=== PATIENT | male | born 1965 | race Caucasian/White ===

== ENCOUNTER 2018-07-28 08:14 | Emergency (ER) | payer MEDICAID ==
[~2018-07-28] VITALS: Ht 177.8 cm; Wt 134.3 kg
[2018-07-28 08:49] LABS: BASOPHILS # (AUTO) 0.1 /CMM (0.0-0.2); EOSINOPHILS % (AUTO) 1.8 % (0.0-6.0); HEMATOCRIT 40 % (39-51); HEMOGLOBIN 13.8 g/dL (13.5-17.5); LYMPHOCYTES # (AUTO) 3.7 /CMM (0.8-4.8); LYMPHOCYTES % (AUTO) 42.8 % (20.0-44.0); MEAN CORPUSCULAR HGB CONC 34 g/dl (31.0-36.0); MEAN CORPUSCULAR VOLUME 94 fL (80-96); MONOCYTES # (AUTO) 0.8 /CMM (0.1-1.30); MONOCYTES % (AUTO) 9.2 % (2.0-12.0); NEUTROPHILS # (AUTO) 3.9 /CMM (1.8-8.9); NEUTROPHILS % (AUTO) 45.2 % (43.0-81.0); PLATELET COUNT (AUTO) 304 /CMM (150-450); RED BLOOD CELL COUNT(AUTO) 4.29 MIL/uL (4.5-6.0); WHITE BLOOD COUNT (AUTO) 8.7 K/uL (4.3-11.0)
[2018-07-28 08:51] LABS: APPEARANCE,URINE Clear (CLEAR); BILIRUBIN,URINE Negative (NEGATIVE); BLOOD, URINE Trace-intact Ery/uL (NEGATIVE); COLOR,URINE Yellow (YELLOW); KETONES,URINE Negative (NEGATIVE); LEUKOCYTE ESTERASE ,URINE Negative (NEGATIVE); NITRITE, URINE Negative (NEGATIVE); PH,URINE 5.5 (5.0-8.0); PROTEIN,URINE Negative (NEGATIVE); UGLUCOSE Negative (NEGATIVE); UROBILINOGEN,URINE 0.2 EU/dL (0.2)
--- NOTE | 2018-07-28 08:59 | NUR ---
0820: Patient A/Ox3, verbalized no SI at this time. Verbalized that sometimes he thinks he wants "cut his wrist", but no ideation at this time. 0850: Eating breakfast, VSS. Monitored. Addendum: 07/28/18 at 1431 by LILLIANA Awaitng [facility] Robin boston. PAtient aware. Resting in bed at this time.
[2018-07-28 09:01] LABS: CALCIUM, SERUM 9.1 mg/dL (8.5-10.1); CARBON DIOXIDE 25 mmol/L (21-32); CHLORIDE 103 mmol/L (98-107); GLUCOSE 100 mg/dL (74-106); POTASSIUM 3.9 mmol/L (3.5-5.1); SODIUM SERUM 141 mmol/L (136-145); UREA NITROGEN, BLOOD 17 mg/dL (7-18)
[2018-07-28 09:06] LABS: ALANINE AMINOTRANSFERASE 28 U/L (12-78); ALBUMIN 3.4 g/dL (3.4-5.0); ALCOHOL, BLOOD 63 mg/dL (0-0); ALKALINE PHOSPHATASE 91 U/L (46-116); ASPARTATE AMINOTRANSFERASE 18 U/L (15-37); BILIRUBIN,TOTAL 0.2 mg/dL (0.2-1.0); SALICYLATE 3.6 mg/dL (2.8-20.0); TOTAL PROTEIN, SERUM 7.9 g/dL (6.4-8.2)
[2018-07-28 09:13] LABS: BACTERIA,URINE Rare /HPF (None Seen); SQUAMOUS EPITHELIAL CELL,UR Few /HPF (None Seen); WBC,URINE NONE SEEN /HPF (0-3)
[2018-07-28 09:14] LABS: ACETAMINOPHEN < 2 ug/ml (10-30)
--- NOTE | 2018-07-28 15:38 | NUR ---
1530: Still awaitng placement to [facility]. Patient resting in bed.
--- NOTE | 2018-07-28 15:59 | NUR ---
IFEANYI ETA 2658 TRIP #[id number]
--- NOTE | 2018-07-28 16:59 | NUR ---
Report givento [facility] for KARLIE [phone] Tavera.PAtient aware for the transfer, ETA of curing pickling packer [phone].
--- NOTE | 2018-07-28 17:29 | NUR ---
Ambulanz with 2 personnels here for PI/U. VSS, patient is stable. No PIV placed. Able to ambulate. Still voluntarily wanting to go to other facility.
[2018-07-28 17:33] VITALS: BP 152/85
== END 2018-07-28 17:33 ==
LOC: ER 08:14
DX: R45.851 Suicidal ideations (principal); F32.9 Major depressive disorder, single episode, unspecified; F99 Mental disorder, not otherwise specified; I10 Essential (primary) hypertension; E11.9 Type 2 diabetes mellitus without complications; F60.0 Paranoid personality disorder; F25.9 Schizoaffective disorder, unspecified; Z59.0 Homelessness
CPT/HCPCS: 36415; 80048; 80076; 80305; 80307; 80329; 81001; 85025; 99285; G0480; 81000-TC

== ENCOUNTER 2018-08-17 01:41 | Emergency (ER) | payer OTHER ==
[~2018-08-17] VITALS: Ht 182.9 cm; Wt 136.1 kg
--- NOTE | 2018-08-17 02:07 | NUR ---
CALLED FOR PT 3 TIMES IN WAITING ROOM. NO RESPONSE.
--- NOTE | 2018-08-17 03:18 | NUR ---
CALLED FOR PT 3 TIMES IN WAITING ROOM. NO RESPONSE.
--- NOTE | 2018-08-17 05:08 | NUR ---
PHLEB AT BEDSIDE FOR LAB DRAW
[2018-08-17 05:18] LABS: BASOPHILS # (AUTO) 0.1 /CMM (0.0-0.2); BASOPHILS % (AUTO) 0.8 % (0.0-2.0); EOSINOPHILS % (AUTO) 1.3 % (0.0-6.0); HEMATOCRIT 41 % (39-51); HEMOGLOBIN 13.7 g/dL (13.5-17.5); LYMPHOCYTES # (AUTO) 2.7 /CMM (0.8-4.8); LYMPHOCYTES % (AUTO) 30.1 % (20.0-44.0); MEAN CORPUSCULAR HGB CONC 34 g/dl (31.0-36.0); MEAN CORPUSCULAR VOLUME 95 fL (80-96); MONOCYTES % (AUTO) 10.8 % (2.0-12.0); NEUTROPHILS # (AUTO) 5.1 /CMM (1.8-8.9); PLATELET COUNT (AUTO) 255 /CMM (150-450); RED BLOOD CELL COUNT(AUTO) 4.27 MIL/uL (4.5-6.0)
[2018-08-17 05:27] LABS: CALCIUM, SERUM 9.3 mg/dL (8.5-10.1); CARBON DIOXIDE 27 mmol/L (21-32); CHLORIDE 101 mmol/L (98-107); GLUCOSE 108 mg/dL (74-106); POTASSIUM 3.8 mmol/L (3.5-5.1); SODIUM SERUM 138 mmol/L (136-145); UREA NITROGEN, BLOOD 22 mg/dL (7-18)
[2018-08-17 05:32] LABS: ALANINE AMINOTRANSFERASE 25 U/L (12-78); ALBUMIN 3.4 g/dL (3.4-5.0); ALKALINE PHOSPHATASE 95 U/L (46-116); ASPARTATE AMINOTRANSFERASE 18 U/L (15-37); BILIRUBIN,DIRECT 0.1 mg/dL (0.0-0.2); BILIRUBIN,TOTAL 0.7 mg/dL (0.2-1.0); SALICYLATE 3.1 mg/dL (2.8-20.0); TOTAL PROTEIN, SERUM 7.7 g/dL (6.4-8.2)
[2018-08-17 05:40] LABS: ACETAMINOPHEN 0 ug/ml (10-30); ALCOHOL, BLOOD < 3 mg/dL (0-0)
--- NOTE | 2018-08-17 08:00 | NUR ---
URINAL GIVEN BUT UNABLE TO PROVIDE URINE SPECIMEN, PT REFUSED STRAIGHT CATHETER INSERTION.
--- NOTE | 2018-08-17 09:06 | NUR ---
PT IS ASLEEP ON BED, EASILY AROUSABLE, V/S STABLE, STILL UNABLE TO PROVIDE URINE SPECIMEN, WILL CONTINUE TO MONITOR.
--- NOTE | 2018-08-17 10:17 | NUR ---
EMANUEL LOOMIS CALLED FOR EVAL
[2018-08-17 10:46] LABS: APPEARANCE,URINE Clear (CLEAR); BILIRUBIN,URINE SMALL (NEGATIVE); BLOOD, URINE Negative Ery/uL (NEGATIVE); COLOR,URINE Yellow (YELLOW); KETONES,URINE Trace (NEGATIVE); LEUKOCYTE ESTERASE ,URINE Negative (NEGATIVE); NITRITE, URINE Negative (NEGATIVE); PROTEIN,URINE 30 mg/dl (NEGATIVE); UGLUCOSE Negative (NEGATIVE); UROBILINOGEN,URINE 0.2 EU/dL (0.2)
[2018-08-17 11:02] LABS: BACTERIA,URINE Rare /HPF (None Seen); MUCUS,URINE Few /LPF (None Seen); SQUAMOUS EPITHELIAL CELL,UR Few /HPF (None Seen)
--- NOTE | 2018-08-17 11:42 | NUR ---
EMANUEL LOOMIS AT BEDSIDE
--- NOTE | 2018-08-17 15:00 | NUR ---
IFEANYI WEBB 7528 TRIP#[id number]
[2018-08-17 16:10] VITALS: BP 126/68
--- NOTE | 2018-08-17 16:18 | NUR ---
called socmare redding for report, report given to gordon for kassy
--- NOTE | 2018-08-17 16:23 | NUR ---
PT TRANSPORTED TO [facility] VIA PRIVATE AMBULANCE, VSS, PT IS STABLE FOR TRANSFER TO HIGHER LEVEL OF CARE TO [facility], PT IS ON A VOLUNTARY BASIS, PT LEFT VIA GURNEY, REPORT GIVEN TO AMBULANCE STAFF, MOVE PACKET WITH EMT.
== END 2018-08-17 16:26 | disposition home or self-care (01) ==
LOC: ER 01:45
DX: F32.9 Major depressive disorder, single episode, unspecified (principal); F29 Unspecified psychosis not due to a substance or known physiological condition; I10 Essential (primary) hypertension; E11.9 Type 2 diabetes mellitus without complications; F25.9 Schizoaffective disorder, unspecified; F60.0 Paranoid personality disorder; F10.10 Alcohol abuse, uncomplicated; F12.10 Cannabis abuse, uncomplicated; F13.10 Sedative, hypnotic or anxiolytic abuse, uncomplicated; Y90.0 Blood alcohol level of less than 20 mg/100 ml; Z59.0 Homelessness
CPT/HCPCS: 36415; 80048; 80076; 80305; 80307; 80329; 81001; 85025; 99284; G0480; 81000-TC

== ENCOUNTER 2018-08-29 05:21 | Emergency (ER) | payer OTHER ==
[~2018-08-29] VITALS: Ht 177.8 cm; Wt 133.8 kg
--- NOTE | 2018-08-29 05:21 | NUR ---
PT BIB SELF C/O SI "I WANT TO CUT MY WRIST" PT IS AAOX4, NOT IN RESPIRATORY DISTRESS, KEPT RESTED AND COMFORTABLE, WILL CONTINUE TO MONITOR.
--- NOTE | 2018-08-29 05:45 | NUR ---
URINE SPECIMEN COLLECTED AND SENT TO LAB.
[2018-08-29 06:36] LABS: BASOPHILS # (AUTO) 0.1 /CMM (0.0-0.2); HEMATOCRIT 41 % (39-51); HEMOGLOBIN 13.9 g/dL (13.5-17.5); LYMPHOCYTES # (AUTO) 2.5 /CMM (0.8-4.8); LYMPHOCYTES % (AUTO) 30.8 % (20.0-44.0); MEAN CORPUSCULAR HGB CONC 34 g/dl (31.0-36.0); MEAN CORPUSCULAR VOLUME 94 fL (80-96); MONOCYTES # (AUTO) 0.8 /CMM (0.1-1.30); MONOCYTES % (AUTO) 9.9 % (2.0-12.0); NEUTROPHILS # (AUTO) 4.7 /CMM (1.8-8.9); NEUTROPHILS % (AUTO) 57.3 % (43.0-81.0); PLATELET COUNT (AUTO) 272 /CMM (150-450); RED BLOOD CELL COUNT(AUTO) 4.34 MIL/uL (4.5-6.0); WHITE BLOOD COUNT (AUTO) 8.1 K/uL (4.3-11.0)
[2018-08-29 06:43] LABS: CALCIUM, SERUM 9.2 mg/dL (8.5-10.1); CARBON DIOXIDE 28 mmol/L (21-32); CHLORIDE 100 mmol/L (98-107); GLUCOSE 120 mg/dL (74-106); POTASSIUM 3.6 mmol/L (3.5-5.1); SODIUM SERUM 137 mmol/L (136-145); UREA NITROGEN, BLOOD 16 mg/dL (7-18)
[2018-08-29 06:43] LABS: APPEARANCE,URINE CLEAR (CLEAR); BILIRUBIN,URINE NEGATIVE (NEGATIVE); BLOOD, URINE NEGATIVE Ery/uL (NEGATIVE); COLOR,URINE YELLOW (YELLOW); KETONES,URINE TRACE (NEGATIVE); LEUKOCYTE ESTERASE ,URINE NEGATIVE (NEGATIVE); NITRITE, URINE POSITIVE (NEGATIVE); PROTEIN,URINE NEGATIVE (NEGATIVE); UGLUCOSE NEGATIVE (NEGATIVE); UROBILINOGEN,URINE 0.2 EU/dL (0.2)
[2018-08-29 06:49] LABS: ALANINE AMINOTRANSFERASE 26 U/L (12-78); ALBUMIN 3.3 g/dL (3.4-5.0); ALCOHOL, BLOOD < 3 mg/dL (0-0); ALKALINE PHOSPHATASE 90 U/L (46-116); ASPARTATE AMINOTRANSFERASE 15 U/L (15-37); BILIRUBIN,DIRECT 0.1 mg/dL (0.0-0.2); BILIRUBIN,TOTAL 0.2 mg/dL (0.2-1.0); SALICYLATE 3.5 mg/dL (2.8-20.0); TOTAL PROTEIN, SERUM 7.6 g/dL (6.4-8.2)
[2018-08-29 06:53] LABS: ACETAMINOPHEN 0 ug/ml (10-30)
--- NOTE | 2018-08-29 07:25 | NUR ---
PATIENT AND BELONGINGS WANDED BY SECURITY, MEDICATIONS (13 SMALL BOTTLES, 3 BIG BOTTLES AND 1 ALBUTEROL INHALER), 2 LIGHTERS, SMOKING TOOL, EYEGLASSES, PEDIATRIC NEUROLOGIST AND NOTEBOOK PLACED AT NURSING STATION. CAN BRUSH CLEARING LABORER WITH KNIFE KEPT BY SECURITY.
--- NOTE | 2018-08-29 08:10 | NUR ---
RUFINO LOOMIS CALLED FOR EVAL
--- NOTE | 2018-08-29 08:17 | NUR ---
CALL BACK FROM RUFINO
[2018-08-29 08:34] LABS: BACTERIA,URINE Rare /HPF (None Seen); RBC,URINE NONE SEEN /HPF (0-2); SQUAMOUS EPITHELIAL CELL,UR Few /HPF (None Seen); WBC,URINE NONE SEEN /HPF (0-3)
[2018-08-29 08:59] VITALS: BP 129/83
--- NOTE | 2018-08-29 09:09 | NUR ---
BREAKFAST TRAY PROVIDED, PT TOLERATING PO WELL.
--- NOTE | 2018-08-29 09:48 | NUR ---
PANTRY GOODS WORKER RUFINO GALLARDO AT BEDSIDE
--- NOTE | 2018-08-29 11:15 | NUR ---
pt accepted at [facility] nurse: osvaldo report: [phone] dr. Gupta
--- NOTE | 2018-08-29 11:32 | NUR ---
REPORT GIVEN TO MARBIN GUZMAN OF [facility].
--- NOTE | 2018-08-29 12:04 | NUR ---
CALLED FOR TRANSPORT, ETA 1 HOUR (APPROX 1300), TRIP # [id number]
--- NOTE | 2018-08-29 13:25 | NUR ---
Patient discharged to [facility] UN[facility] in stable condition. Pt signed homeless waiver form. Patient given written and verbal discharge instructions. Patient verbalizes understanding of instructions. Patient is ambulatory with steady gait. Patient given list of available shelters in surrounding area. Name ban removed. All belongings returned. Wearing appropriate clothes. Pt will be brought to [facility].
== END 2018-08-29 13:29 ==
LOC: ER 05:24
DX: R45.851 Suicidal ideations (principal); I10 Essential (primary) hypertension; E11.9 Type 2 diabetes mellitus without complications; M19.90 Unspecified osteoarthritis, unspecified site; F17.200 Nicotine dependence, unspecified, uncomplicated; Z59.0 Homelessness
CPT/HCPCS: 36415; 80048; 80076; 80305; 80307; 80329; 81001; 85025; 87086; 99285; G0480; 81000-TC

== ENCOUNTER 2018-10-23 05:58 | Emergency (ER) | payer OTHER ==
[~2018-10-23] VITALS: Ht 177.8 cm; Wt 130.2 kg
--- NOTE | 2018-10-23 06:24 | NUR ---
BIBSELF TO ER. PT IS ALERT AND ORIENTED X4. PT SMELLS OF ALCOHOL. NO RESPIRATORY DISTRESS. AMBULATORY. COOPERATIVE AND COMPLIANCE. CAME TO ER FOR THOUGHT OF HURTING HIMSELF WITHOUT ANY SPECIFIC PLAN. DENIES HI. PT REPORTS HAVE BEEN FEELING DEPRESSED. ALCOHOL USED TWO HOURS AGO, UNKNOWN AMOUNT. PT'E BELONGINGS AND CLOTHES STRIPPED OFF FROM PT, LABELED AND KEPT IN LOCKER IN UTILITY ROOM. PT PLACED IN GOWN. 1:1 SITTER AT BEDSIDE. AWATING MD FOR EVAL. BLOOD DRAWN AND URINE COLLECTED.
[2018-10-23] MEDS ORDERED: OLANZAPINE 5 MG TABLET PO ONE (06:30)
[2018-10-23] MEDS ORDERED: OLANZAPINE 5 MG TABLET ONE (06:31)
[2018-10-23 06:38] LABS: BASOPHILS # (AUTO) 0.1 /CMM (0.0-0.2); BASOPHILS % (AUTO) 0.9 % (0.0-2.0); HEMATOCRIT 43 % (39-51); HEMOGLOBIN 14.6 g/dL (13.5-17.5); LYMPHOCYTES # (AUTO) 2.4 /CMM (0.8-4.8); LYMPHOCYTES % (AUTO) 29.6 % (20.0-44.0); MEAN CORPUSCULAR HGB CONC 34 g/dl (31.0-36.0); MEAN CORPUSCULAR VOLUME 92 fL (80-96); MONOCYTES # (AUTO) 0.7 /CMM (0.1-1.30); MONOCYTES % (AUTO) 8.4 % (2.0-12.0); NEUTROPHILS # (AUTO) 4.8 /CMM (1.8-8.9); NEUTROPHILS % (AUTO) 60.1 % (43.0-81.0); PLATELET COUNT (AUTO) 273 /CMM (150-450); RED BLOOD CELL COUNT(AUTO) 4.68 MIL/uL (4.5-6.0); WHITE BLOOD COUNT (AUTO) 8.1 K/uL (4.3-11.0)
[2018-10-23 06:45] LABS: APPEARANCE,URINE CLEAR (CLEAR); BILIRUBIN,URINE NEGATIVE (NEGATIVE); BLOOD, URINE NEGATIVE Ery/uL (NEGATIVE); COLOR,URINE YELLOW (YELLOW); KETONES,URINE 1+ (NEGATIVE); LEUKOCYTE ESTERASE ,URINE NEGATIVE (NEGATIVE); NITRITE, URINE NEGATIVE (NEGATIVE); PROTEIN,URINE NEGATIVE (NEGATIVE); UGLUCOSE NEGATIVE (NEGATIVE); UROBILINOGEN,URINE 0.2 EU/dL (0.2)
[2018-10-23 06:46] LABS: CALCIUM, SERUM 9.1 mg/dL (8.5-10.1); CREATININE 0.9 mg/dL (0.6-1.3); POTASSIUM 4.2 mmol/L (3.5-5.1)
[2018-10-23 06:52] LABS: ALBUMIN 3.6 g/dL (3.4-5.0); BILIRUBIN,DIRECT 0.1 mg/dL (0.0-0.2); BILIRUBIN,TOTAL 0.2 mg/dL (0.2-1.0); SALICYLATE 2.9 mg/dL (2.8-20.0); TOTAL PROTEIN, SERUM 8.4 g/dL (6.4-8.2)
[2018-10-23 07:06] LABS: BACTERIA,URINE None seen /HPF (None Seen); RBC,URINE NONE SEEN /HPF (0-2); SQUAMOUS EPITHELIAL CELL,UR Rare /HPF (None Seen); WBC,URINE 0-2 /HPF (0-3)
--- NOTE | 2018-10-23 07:20 | NUR ---
REPORT RECEIVED FROM EDYTA GUZMAN FOR KARLIE
--- NOTE | 2018-10-23 08:30 | NUR ---
Social service consult requested by Dr. Hernandez for suicidal ideations. Pt. is a 53 year old male who came to [facility] ED for depression and suicidal ideations. SW met with pt. bedside. Pt. is alert and oriented x 4. Pt appears depressed with a flat affect. Pt. states he has been homeless on and off for the past 9 months. Prior to being homeless, pt. was residing in a board and care facility. Pt. has a psychiatric history of Depression and Bipolar Disorder. Pt. has been hospitalized in the past at [facility] and [facility]. Pt. states he is feeling depressed, paranoid and suicidal. He has a suicidal plan to run into traffic. Pt.receives approximately $1000/ month of SSDI. Pt. drinks alcohol and smokes marijuana occasionally. Pt's drink of choice is beer. Pt. smokes 1/2 pack of cigarettes per day. Pt. is requesting voluntary admit to [facility]. SW asked THOMAS Felix to fax clinicals to [facility]. SW of follow up with [facility] regarding acceptance.
--- NOTE | 2018-10-23 08:48 | NUR ---
CHER TREVIZO AT BEDSIDE
--- NOTE | 2018-10-23 10:04 | NUR ---
CHER contacted Desiree in intake at [facility] regarding clinical packet that was faxed to her. Desiree informed SW that she did receive it, however it is under review by the nursing elevator constructor supervisor. Desiree informed SW she is reviewing 6 referrals and it will take some time.
--- NOTE | 2018-10-23 11:24 | NUR ---
TRANSFER INFO: [facility], ACCEPTED BY MD STRAUSS, RN FOR REPORT [phone] EXT [phone], AMBULANCE ETA 1230
[2018-10-23 12:09] VITALS: BP 104/60
--- NOTE | 2018-10-23 12:24 | NUR ---
REPORT GIVEN TO KIRSTEN GUZMAN OF [facility]
--- NOTE | 2018-10-23 13:29 | NUR ---
Patient picked-up by [facility] Unit [facility] in stable condition. Written and verbal after care instructions given. Patient verbalizes understanding of instruction. Patient will be transferred to [facility].
== END 2018-10-23 13:31 ==
LOC: ER 06:01
DX: F29 Unspecified psychosis not due to a substance or known physiological condition (principal); F31.9 Bipolar disorder, unspecified; F20.9 Schizophrenia, unspecified; F22 Delusional disorders; F17.200 Nicotine dependence, unspecified, uncomplicated; I10 Essential (primary) hypertension; E11.9 Type 2 diabetes mellitus without complications; F10.10 Alcohol abuse, uncomplicated; F12.10 Cannabis abuse, uncomplicated; Y90.0 Blood alcohol level of less than 20 mg/100 ml; Z59.0 Homelessness
CPT/HCPCS: 36415; 80048; 80076; 80305; 80307; 80329; 81001; 85025; 99285; G0480; 81000-TC

== ENCOUNTER 2019-08-28 05:06 | Emergency (ER) | payer OTHER ==
[~2019-08-28] VITALS: Ht 177.8 cm; Wt 131.5 kg
[2019-08-28] MEDS ORDERED: OLANZAPINE 5 MG TABLET PO ONE (05:30)
--- NOTE | 2019-08-28 05:32 | NUR ---
PT WAS BIBS TO THE ER FOR C/O SI PLANING TO CUT HIS WRIST. PT AMBULATORY TO BED 13 IN STABLE CONDITION AND STABLE VS. PT WAS GOWNED UP. ALL BELONGINGS WERE TAKEN AWAY AND KEPT IN SAFE. PLACED ON A MONITOR AND CLOSE SUPERVISION OF A SITTER FOR SI PRECAUTION.
--- NOTE | 2019-08-28 05:35 | NUR ---
URINE COLLECTED AND SENT TO THE LAB
[2019-08-28 05:42] LABS: APPEARANCE,URINE Clear (CLEAR); BILIRUBIN,URINE Negative (NEGATIVE); BLOOD, URINE Negative Ery/uL (NEGATIVE); COLOR,URINE Yellow (YELLOW); KETONES,URINE Negative (NEGATIVE); LEUKOCYTE ESTERASE ,URINE Negative (NEGATIVE); NITRITE, URINE Negative (NEGATIVE); PH,URINE 5.5 (5.0-8.0); PROTEIN,URINE Negative (NEGATIVE); UGLUCOSE Negative (NEGATIVE); UROBILINOGEN,URINE 0.2 EU/dL (0.2)
[2019-08-28 05:43] LABS: BASOPHILS # (AUTO) 0.1 /CMM (0.0-0.2); EOSINOPHILS % (AUTO) 1.3 % (0.0-6.0); HEMATOCRIT 45 % (39-51); HEMOGLOBIN 15.1 g/dL (13.5-17.5); LYMPHOCYTES # (AUTO) 2.8 /CMM (0.8-4.8); MEAN CORPUSCULAR HGB CONC 34 g/dl (31.0-36.0); MEAN CORPUSCULAR VOLUME 93 fL (80-96); MONOCYTES # (AUTO) 0.9 /CMM (0.1-1.30); MONOCYTES % (AUTO) 9.9 % (2.0-12.0); NEUTROPHILS # (AUTO) 5.2 /CMM (1.8-8.9); NEUTROPHILS % (AUTO) 56.8 % (43.0-81.0); PLATELET COUNT (AUTO) 290 /CMM (150-450); RED BLOOD CELL COUNT(AUTO) 4.84 MIL/uL (4.5-6.0); WHITE BLOOD COUNT (AUTO) 9.1 K/uL (4.3-11.0)
[2019-08-28] MEDS ORDERED: OLANZAPINE 5 MG TABLET ONE (05:47)
[2019-08-28 05:50] LABS: CALCIUM, SERUM 8.9 mg/dL (8.5-10.1); CARBON DIOXIDE 25 mmol/L (21-32); CHLORIDE 101 mmol/L (98-107); GLUCOSE 97 mg/dL (74-106); POTASSIUM 4.1 mmol/L (3.5-5.1); SODIUM SERUM 137 mmol/L (136-145); UREA NITROGEN, BLOOD 11 mg/dL (7-18)
[2019-08-28 05:56] LABS: ALANINE AMINOTRANSFERASE 40 U/L (12-78); ALBUMIN 3.6 g/dL (3.4-5.0); ALCOHOL, BLOOD 15 mg/dL (0-0); ALKALINE PHOSPHATASE 113 U/L (46-116); ASPARTATE AMINOTRANSFERASE 26 U/L (15-37); BILIRUBIN,TOTAL 0.2 mg/dL (0.2-1.0); SALICYLATE 2.4 mg/dL (2.8-20.0); TOTAL PROTEIN, SERUM 7.8 g/dL (6.4-8.2)
[2019-08-28 05:57] LABS: ACETAMINOPHEN < 2 ug/ml (10-30)
--- NOTE | 2019-08-28 07:22 | NUR ---
ENDORSEMENT RECEIVED FROM TAYLOR GUZMAN FOR KARLIE, PATIENT IN BED ASLEEP, EASILY AROUSABLE BY VOICE. HOOKED TO MONITOR, SITTER AT BEDSIDE FOR SAFETY, WILL CONTINUE TO MONITOR ACCORDINGLY
--- NOTE | 2019-08-28 08:20 | NUR ---
Social Service consult requested by MD for voluntary psychiatric admission. Per MD notes, pt is a 54-year-old male with history of prior episodes of suicidal ideation currently presenting to the ER with endorsement of suicidal ideation with plan to cut his wrist. Patient is not been taking any psychiatric medications. Other trigger for his worsening psychiatric symptoms is not forthcoming. Patient states that he is seeking voluntary placement at a psychiatric facility. METAL BASE BLOCKER conducted chart review and met with the pt bedside in ED. METAL BASE BLOCKER introduced self, explained role and purpose of the visit. Pt is alert and oriented x 4. Pt appears disheveled. Pt reports to be homeless for the past two years. Prior to being homeless, pt was residing at a [facility] facility but was evicted due to smoking in the room. Pt receives over $1000 per month in SSDI. Pt has a psychiatric diagnosis of Schizophrenia and his current medications include Depakote, Seroquel, Lexapro and Klonopin. Pt has a history of psychiatric hospitalizations with the most recent hospitalization on September 24. Pt reports to feeling suicidal with a plan to cut his wrists. Pt reports, when he drinks alcohol, he usually drink a six pack of beer. Pt uses marijuana frequently. Pt's toxicology is positive for cannabinoids. METAL BASE BLOCKER provided pt with active listening, supportive counseling, emotional support and validation of feelings. METAL BASE BLOCKER contacted Pra[facility] at [facility] and initiated voluntary admission. METAL BASE BLOCKER faxed clinicals to [facility] intake department. GALEN and Dr. Aquino have been updated with aforementioned information.
--- NOTE | 2019-08-28 09:32 | NUR ---
BREAKFAST TRAY PROVIDED, TOLERATING PO WELL.
--- NOTE | 2019-08-28 10:52 | NUR ---
[facility] intake patient is accepted going to room [address] [place] [address] Dr. Gupta/Dr. Michele duong [phone]
--- NOTE | 2019-08-28 11:06 | NUR ---
CALLED CALL THE CAR. WILL CALL BACK WITH ETA. REFERENCE NUMBER [id number].
--- NOTE | 2019-08-28 11:29 | NUR ---
[facility] ETA 1330.
[2019-08-28 13:01] VITALS: BP 146/80
--- NOTE | 2019-08-28 13:18 | NUR ---
Patient picked up by regular ambulance in stable condition. Patient will be brought to [facility]
--- NOTE | 2019-08-28 13:24 | NUR ---
REPORT GIVEN TO YURIY GUZMAN OF PSYCH UNIT
== END 2019-08-28 13:17 ==
LOC: ER 05:11
DX: R45.851 Suicidal ideations (principal); I10 Essential (primary) hypertension; E11.9 Type 2 diabetes mellitus without complications; F32.9 Major depressive disorder, single episode, unspecified; M19.90 Unspecified osteoarthritis, unspecified site; F17.200 Nicotine dependence, unspecified, uncomplicated; Z59.0 Homelessness
CPT/HCPCS: 36415; 80048; 80076; 80305; 80307; 80329; 81001; 85025; 99285; G0480; 81000-TC